=== PATIENT | male | born 1935 | race Hispanic/Latino ===

== ENCOUNTER 2021-07-16 11:39 | Inpatient (IN) | payer MEDICARE, OTHER ==
[2021-07-16] MEDS ORDERED: IPRATROPIUM 0.02% NEBU 2.5 ML IH ONE (11:51)
[2021-07-16] MEDS ORDERED: ALBUTEROL 2.5 MG/3 ML NEBU IH ONE (11:51)
--- NOTE | 2021-07-16 11:55 | Emergency Department Report ---
ED Shortness of Breath HPI - General Chief Complaint: Dyspnea/Respdistress Stated Complaint: MAY Time Seen by Provider: 07/16/21 11:50 Source: patient, EMS Mode of arrival: Stretcher Limitations: No Limitations - History of Present Illness Initial Comments: Patient presents by ambulance from the [facility] secondary shortness of breath and hypoxia. He presented there with cough and congestion shortness of breath. They administered inhalers. They administered steroids. Patient was transported here on a nonrebreather. Saturations were initially in the 60-70 range. On a nonrebreather per EMS, he has been in the high 80s. Patient states that he is felt short of breath. He denies coughing. He has no chest pain. He has no fevers or chills. It should be noted the patient is a poor historian. He denies having congestive heart failure but is on diuretics and does have a history of CHF. He denies having a cough but is coughing here. We are unaware whether he has a known COVID exposure. He has no idea whether he was vaccinated. - Related Data Allergies Allergy/AdvReac Type Severity Reaction Status Date / Time No Known Allergies Allergy Unverified 07/16/21 11:46 ED Review of Systems ROS: Stated complaint: MAY Other details as noted in HPI Comment: Unobtainable due to pts medical conditions (Patient is a poor his nereyda and cannot provide adequate review of systems.) ED Past Medical Hx - Past Medical History Previous Medical History?: Yes Hx Congestive Heart Failure: Yes Hx of Cancer: Yes (BLADDER) Hx COPD: Yes Additional medical history: AAA - Family History Family history: other (Denied by the patient) ED Physical Exam - General Limitations: Altered Mental Status (Patient is a poor historian but not altered), Other (Pulse ox was hypoxic at 88% on a nonrebreather.) General appearance: alert, in distress (Moderate) - Head Head exam: Present: atraumatic, normocephalic - Eye Eye exam: Present: normal appearance, EOMI. Absent: scleral icterus - ENT ENT exam: Present: mucous membranes dry, normal external ear exam - Neck Neck exam: Present: normal inspection. Absent: meningismus - Respiratory Respiratory exam: Present: respiratory distress (Moderate), wheezes (Bilateral), rhonchi (Bilateral), prolonged expiratory - Cardiovascular Cardiovascular Exam: Present: regular rate, normal rhythm - GI/Abdominal GI/Abdominal exam: Present: soft. Absent: distended, tenderness - Extremities Exam Extremities exam: Present: normal capillary refill. Absent: pedal edema, calf tenderness - Back Exam Back exam: Absent: CVA tenderness (R), CVA tenderness (L) - Neurological Exam Neurological exam: Present: alert, CN II-XII intact, reflexes normal - Psychiatric Psychiatric exam: Present: normal affect, normal mood - Skin Skin exam: Present: warm, dry ED Course Vital Signs 07/16/21 07/16/21 07/16/21 11:39 12:02 12:16 Temperature 97.5 F L Pulse Rate 72 105 H 104 H Respiratory 16 31 H Rate Blood Pressure 94/56 Blood Pressure 102/76 [Left] O2 Sat by Pulse 88 95 Oximetry 07/16/21 07/16/21 07/16/21 12:30 12:46 13:00 Temperature Pulse Rate 95 H 104 H 102 H Respiratory 29 H 23 28 H Rate Blood Pressure 99/57 100/52 93/55 Blood Pressure [Left] O2 Sat by Pulse 93 78 L 71 L Oximetry 07/16/21 07/16/21 07/16/21 13:16 13:30 13:46 Temperature Pulse Rate 84 92 H 92 H Respiratory 16 27 H 27 H Rate Blood Pressure 96/65 107/59 111/58 Blood Pressure [Left] O2 Sat by Pulse 97 97 87 Oximetry 07/16/21 14:00 Temperature Pulse Rate 97 H Respiratory 30 H Rate Blood Pressure 104/62 Blood Pressure [Left] O2 Sat by Pulse 80 L Oximetry - Reevaluation(s) Reevaluation #1: 07/16/21 11:35 EMS have been met upon arrival. IV and labs ordered. Old records reviewed. X- ray was also ordered. Reevaluation #2: 07/16/21 15:26 Work-up was finally complete. Patient will be admitted. Dr. Johnson agrees. ED Medical Decision Making - Lab Data Result diagrams: 07/16/21 13:37 07/16/21 13:37 Rhythm strip: Normal sinus rhythm without ectopy. Monitor observed in seconds. - Radiology Data Radiology results: report reviewed - Medical Decision Making Patient presents from a [place] facility secondary to hypoxia. He was hypoxic here on a nonrebreather. He has findings that are consistent with coronavirus infection. He does not appear to have a lobar pneumonia. Patient does not appear to have volume overload. He has no pedal edema. I do not believe this represents congestive heart failure. I suspect that this likely represents a coronavirus infection and he is hypoxic from this. He will be admitted for ongoing treatment and management. He is not stable for transfer. Critical Care Time: No Critical care attestation.: If time is entered above; I have spent that time in minutes in the direct care of this critically ill patient, excluding procedure time. ED Disposition Clinical Impression: Acute respiratory failure with hypoxia, Suspected COVID-19 virus infection, ETHEL (acute kidney injury) Disposition: ADMITTED INPATIENT Is pt being admited?: Yes Condition: Stable Referrals: PRIMARY CARE, [Primary Care Provider] - 3-5 Days
--- NOTE | 2021-07-16 12:20 | XRay Report ---
CHEST 1 VIEW 07/16/2021 11:54 AM INDICATION / CLINICAL INFORMATION: hypoxia. COMPARISON: None available. FINDINGS: Patient is rotated. SUPPORT DEVICES: None. HEART / MEDIASTINUM: No significant abnormality. LUNGS / PLEURA: There is airspace opacity in the lung bases left greater than right. No pneumothorax. ADDITIONAL FINDINGS: No significant additional findings. IMPRESSION: 1. There is bilateral basilar airspace disease left greater than right. This could represent atelecta sis or pneumonia. Signer Name: Ady Pina MD Signed: 07/16/2021 12:15 PM Workstation Name: [id number]
[2021-07-16 14:23] LABS: Hematocrit 37.5 % (35.5-45.6); Mean Corpuscular HGB Conc 32 % (32-34); Mean Corpuscular Volume 97 fl (84-94); Platelet Count 147 K/mm3 (140-440); Red Blood Count 3.86 M/mm3 (3.65-5.03); Red Cell Distribution Width 14.9 % (13.2-15.2)
[2021-07-16 14:45] LABS: Calcium 8.9 mg/dL (8.4-10.2)
[2021-07-16 14:48] LABS: C-Reactive Protein 23.2 mg/dL (0.00-1.30)
[2021-07-16 15:15] LABS: Chol/HDL Ratio 3.1 %
[2021-07-16 16:44] LABS: Basophils % (Manual) 0 % (0.0-1.8); Eosinophils % (Manual) 0 % (0.0-4.3); Platelet Estimate Consistent w Auto; RBC Morphology Normal; Total Cells Counted 100
--- NOTE | 2021-07-16 21:07 | History and Physical Report ---
History of Present Illness Date of examination: 07/16/21 Date of admission: 07/16/2021 Chief complaint: Shortness of breath for 3 days History of present illness: Patient presents by ambulance from the [facility] secondary shortness of breath and hypoxia. He presented there with cough and congestion shortness of breath. They administered inhalers. They administered steroids. Patient was transported here on a nonrebreather. Saturations were initially in the 60-70 range. On a nonrebreather per EMS, he has been in the high 80s. Patient states that he is felt short of breath. He denies coughing. He has no chest pain. He has no fevers or chills. It should be noted the patient is a poor historian. He denies having congestive heart failure but is on diuretics and does have a history of CHF. He denies having a cough but is coughing here. We are unaware whether he has a known COVID exposure. He has no idea whether he was vaccinated. - Related Data Allergies Allergy/AdvReac Type Severity Reaction Status Date / Time No Known Allergies Allergy Unverified 07/16/21 11:46 - Past Medical History Previous Medical History?: Yes --Congestive Heart Failure: Yes --Cancer: Yes (BLADDER) --COPD: Yes Additional medical history: AAA - Family History Family history: other (Denied by the patient) Review of Systems ROS: Stated complaint: MAY Other details as noted in HPI Comment: Unobtainable due to pts medical conditions (Patient is a poor historian and cannot provide adequate review of systems.) Medications and Allergies Allergies Allergy/AdvReac Type Severity Reaction Status Date / Time No Known Allergies Allergy Unverified 07/16/21 15:58 Home Medications Medication Instructions Recorded Confirmed Last Taken Type Lasix 20 mg PO Q48HR 07/16/21 07/16/21 Unknown History Exam - Constitutional Vitals: Temp Pulse Resp BP Pulse Ox 97.5 F L 108 H 21 90/51 92 07/16/21 11:39 07/16/21 16:30 07/16/21 16:30 07/16/21 16:30 07/16/21 16:30 General appearance: Present: no acute distress, well-nourished - EENT Eyes: Present: PERRL ENT: hearing intact, clear oral mucosa - Neck Neck: Present: supple, normal ROM - Respiratory Respiratory effort: normal Respiratory: bilateral: CTA, rales (Scattered), rhonchi - Cardiovascular Heart rate: 78 Rhythm: regular Heart Sounds: Present: S1 & S2. Absent: rub, click - Extremities Extremities: pulses symmetrical, No edema Peripheral Pulses: within normal limits - Abdominal General gastrointestinal: Present: soft, non-tender, non-distended, normal bowel sounds Male genitourinary: Present: normal - Integumentary Integumentary: Present: clear, warm, dry - Musculoskeletal Musculoskeletal: gait normal, strength equal bilaterally - Psychiatric Psychiatric: appropriate mood/affect, intact judgment & insight - Neurologic Neurologic: CNII-XII intact, moves all extremities HEART Score - HEART Score Troponin: Troponin T 0.038 ng/mL (0.00-0.029) H 07/16/21 13:37 Results - Labs CBC & Chem 7: 07/16/21 13:37 07/18/21 04:12 Labs: Laboratory Last Values WBC 8.9 K/mm3 (4.5-11.0) 07/16/21 13:37 RBC 3.86 M/mm3 (3.65-5.03) 07/16/21 13:37 Hgb 12.0 gm/dl (11.8-15.2) 07/16/21 13:37 Hct 37.5 % (35.5-45.6) 07/16/21 13:37 MCV 97 fl (84-94) H 07/16/21 13:37 MCH 31 pg (28-32) 07/16/21 13:37 MCHC 32 % (32-34) 07/16/21 13:37 RDW 14.9 % (13.2-15.2) 07/16/21 13:37 Plt Count 147 K/mm3 (140-440) 07/16/21 13:37 Add Manual Diff Complete 07/16/21 13:37 Total Counted 100 07/16/21 13:37 Seg Neutrophils % [employer] Consultant 07/16/21 13:37 Seg Neuts % (Manual) 93.0 % (40.0-70.0) H 07/16/21 13:37 Band Neutrophils % 0 % 07/16/21 13:37 Lymphocytes % (Manual) 5.0 % (13.4-35.0) L 07/16/21 13:37 Reactive Lymphs % (Man) 0 % 07/16/21 13:37 Monocytes % (Manual) 2.0 % (0.0-7.3) 07/16/21 13:37 Eosinophils % (Manual) 0 % (0.0-4.3) 07/16/21 13:37 Basophils % (Manual) 0 % (0.0-1.8) 07/16/21 13:37 Metamyelocytes % 0 % 07/16/21 13:37 Myelocytes % 0 % 07/16/21 13:37 Promyelocytes % 0 % 07/16/21 13:37 Blast Cells % 0 % 07/16/21 13:37 Nucleated RBC % Not Reportable 07/16/21 13:37 Seg Neutrophils # Man 8.3 K/mm3 (1.8-7.7) H 07/16/21 13:37 Band Neutrophils # 0.0 K/mm3 07/16/21 13:37 Lymphocytes # (Manual) 0.4 K/mm3 (1.2-5.4) L 07/16/21 13:37 Abs React Lymphs (Man) 0.0 K/mm3 07/16/21 13:37 Monocytes # (Manual) 0.2 K/mm3 (0.0-0.8) 07/16/21 13:37 Eosinophils # (Manual) 0.0 K/mm3 (0.0-0.4) 07/16/21 13:37 Basophils # (Manual) 0.0 K/mm3 (0.0-0.1) 07/16/21 13:37 Metamyelocytes # 0.0 K/mm3 07/16/21 13:37 Myelocytes # 0.0 K/mm3 07/16/21 13:37 Promyelocytes # 0.0 K/mm3 07/16/21 13:37 Blast Cells # 0.0 K/mm3 07/16/21 13:37 WBC Morphology Not Reportable 07/16/21 13:37 Hypersegmented Neuts Not Reportable 07/16/21 13:37 Hyposegmented Neuts Not Reportable 07/16/21 13:37 Hypogranular Neuts Not Reportable 07/16/21 13:37 Smudge Cells Not Reportable 07/16/21 13:37 Toxic Granulation Not Reportable 07/16/21 13:37 Toxic Vacuolation Not Reportable 07/16/21 13:37 Dohle Bodies Not Reportable 07/16/21 13:37 Pelger-Huet Anomaly Not Reportable 07/16/21 13:37 Eleni Rods Not Reportable 07/16/21 13:37 Platelet Estimate Consistent w auto 07/16/21 13:37 Clumped Platelets Not Reportable 07/16/21 13:37 Plt Clumps, EDTA Not Reportable 07/16/21 13:37 Large Platelets Not Reportable 07/16/21 13:37 Giant Platelets Not Reportable 07/16/21 13:37 Platelet Satelliting Not Reportable 07/16/21 13:37 Plt Morphology Comment Not Reportable 07/16/21 13:37 RBC Morphology Normal 07/16/21 13:37 Dimorphic RBCs Not Reportable 07/16/21 13:37 Polychromasia Not Reportable 07/16/21 13:37 Hypochromasia Not Reportable 07/16/21 13:37 Poikilocytosis Not Reportable 07/16/21 13:37 Anisocytosis Not Reportable 07/16/21 13:37 Microcytosis Not Reportable 07/16/21 13:37 Macrocytosis Not Reportable 07/16/21 13:37 Spherocytes Not Reportable 07/16/21 13:37 Pappenheimer Bodies Not Reportable 07/16/21 13:37 Sickle Cells Not Reportable 07/16/21 13:37 Target Cells Not Reportable 07/16/21 13:37 Tear Drop Cells Not Reportable 07/16/21 13:37 Ovalocytes Not Reportable 07/16/21 13:37 Helmet Cells Not Reportable 07/16/21 13:37 Chavarria-Calvin Bodies Not Reportable 07/16/21 13:37 [place] Rings Not Reportable 07/16/21 13:37 Clara Cells Not Reportable 07/16/21 13:37 Bite Cells Not Reportable 07/16/21 13:37 Crenated Cell Not Reportable 07/16/21 13:37 Elliptocytes Not Reportable 07/16/21 13:37 Acanthocytes (Spur) Not Reportable 07/16/21 13:37 Rouleaux Not Reportable 07/16/21 13:37 Hemoglobin C Crystals Not Reportable 07/16/21 13:37 Schistocytes Not Reportable 07/16/21 13:37 Malaria parasites Not Reportable 07/16/21 13:37 Deepak Bodies Not Reportable 07/16/21 13:37 Hem Pathologist Commnt No 07/16/21 13:37 D-Dimer 6795.60 ng/mlDDU (0-234) H 07/16/21 13:37 Sodium 142 mmol/L (137-145) 07/16/21 13:37 Potassium 4.1 mmol/L (3.6-5.0) 07/16/21 13:37 Chloride 102.5 mmol/L (98-107) 07/16/21 13:37 Carbon Dioxide 21 mmol/L (22-30) L 07/16/21 13:37 Anion Gap 23 mmol/L 07/16/21 13:37 BUN 46 mg/dL (9-20) H 07/16/21 13:37 Creatinine 1.8 mg/dL (0.8-1.3) H 07/16/21 13:37 Estimated GFR 36 ml/min 07/16/21 13:37 BUN/Creatinine Ratio 26 % 07/16/21 13:37 Glucose 194 mg/dL (75-100) H 07/16/21 13:37 Glucose 197 mg/dL (75-100) H 07/16/21 13:37 Calcium 8.9 mg/dL (8.4-10.2) 07/16/21 13:37 Ferritin 512.3 ng/mL (30.0-300.0) H 07/16/21 13:37 Lactate Dehydrogenase 310 units/L (91-180) H 07/16/21 13:37 Troponin T 0.038 ng/mL (0.00-0.029) H 07/16/21 13:37 C-Reactive Protein 23.20 mg/dL (0.00-1.30) H 07/16/21 13:37 Triglycerides 80 mg/dL (2-149) 07/16/21 13:37 Cholesterol 90 mg/dL (50-199) 07/16/21 13:37 LDL Cholesterol Direct 49 mg/dL (50-130) L 07/16/21 13:37 HDL Cholesterol 29 mg/dL (40-59) L 07/16/21 13:37 Cholesterol/HDL Ratio 3.10 % 07/16/21 13:37 Procalcitonin 0.95 ng/mL (<0.15) 07/16/21 13:37 - Imaging and Cardiology Chest x-ray: report reviewed Imaging and Cardiology: Chest x-ray Bilateral basilar airspace disease left greater than right. This could represent atelectasis or pneumonia Assessment and Plan Advance Directives: Yes - Patient Problems (1) Acute respiratory failure with hypoxia Current Visit: Yes Status: Acute Plan to address problem: Patient is in acute respiratory failure with hypoxia Patient on 100% nonrebreather Bilateral pneumonia COVID to be ruled out (2) Bilateral pneumonia Current Visit: Yes Status: Acute Plan to address problem: IV antibiotics-Zithromax and IV Rocephin for now Check procalcitonin (3) Suspected COVID-19 virus infection Current Visit: Yes Status: Acute Plan to address problem: Rule out coronavirus PCR (4) ETHEL (acute kidney injury) Current Visit: Yes Status: Acute Plan to address problem: Gentle hydration for now (5) CHF (congestive heart failure) Current Visit: Yes Status: Chronic Qualifiers: Heart failure type: combined systolic and diastolic Heart failure chronicity: unspecified Qualified Code(s): I50.40 - Unspecified combined systolic (congestive) and diastolic (congestive) heart failure Plan to address problem: Echocardiogram for ejection fraction Lasix as needed (6) COPD (chronic obstructive pulmonary disease) Current Visit: Yes Status: Chronic Qualifiers: Emphysema type: unspecified Plan to address problem: Combivent MDI 2 puffs twice daily (7) AAA (abdominal aortic aneurysm) Current Visit: Yes Status: Chronic Qualifiers: Presence of rupture: without rupture Qualified Code(s): I71.4 - Abdominal aortic aneurysm, without rupture Plan to address problem: Stable (8) DVT prophylaxis Current Visit: Yes Status: Acute Plan to address problem: On anticoagulation GI prophylaxis
[2021-07-16] MEDS ORDERED: ACETAMINOPHEN 325 MG TAB PO PRN (21:08)
[2021-07-16] MEDS ORDERED: ONDANSETRON 4 MG/2 ML INJ IV PRN (21:08)
[2021-07-16] MEDS ORDERED: HYDROmorphone 1 MG/1 ML INJ IV PRN (21:10)
[2021-07-16] MEDS ORDERED: oxyCODONE /ACETAMINOPHEN 5-325MG TAB PO PRN (21:10)
[2021-07-16] MEDS ORDERED: METOCLOPRAMIDE 10 MG/2 ML INJ IV PRN (21:10)
[2021-07-16] MEDS ORDERED: SODIUM CHLORIDE 0.9% 1000 ML 1,000 ML IV SCH (21:15)
[2021-07-16] MEDS: cefTRIAXone/NS 2 GM/100 ML 2 GM/100 ML BAG IV SCH (23:02)
[2021-07-16] MEDS: AZITHROMYCIN/NS 500 MG/250 ML 500 MG/250 ML BAG IV SCH (23:02)
[2021-07-16] MEDS: dexAMETHasone 4 MG/ML VIAL IV SCH (23:03)
[2021-07-16] MEDS: HEPARIN 5,000 UNIT/1 ML VIAL SUB-Q SCH (23:28)
[2021-07-17 05:35] LABS: Albumin 2.8 g/dL (3.9-5); Calcium 8.2 mg/dL (8.4-10.2)
[2021-07-17] MEDS: HEPARIN 5,000 UNIT/1 ML VIAL SUB-Q SCH ×2 (10:54→22:32)
[2021-07-17] MEDS: cefTRIAXone/NS 2 GM/100 ML 2 GM/100 ML BAG IV SCH (22:31)
[2021-07-17] MEDS: dexAMETHasone 4 MG/ML VIAL IV SCH (22:32)
[2021-07-17] MEDS: AZITHROMYCIN/NS 500 MG/250 ML 500 MG/250 ML BAG IV SCH (22:33)
--- NOTE | 2021-07-17 22:39 | Progress Note ---
Assessment and Plan - Patient Problems (1) Acute respiratory failure with hypoxia Current Visit: Yes Status: Acute Plan to address problem: Patient is in acute respiratory failure with hypoxia Patient on 100% nonrebreather Bilateral pneumonia COVID to be ruled out (2) ETHEL (acute kidney injury) Current Visit: Yes Status: Acute Plan to address problem: Gentle hydration for now (3) Suspected COVID-19 virus infection Current Visit: Yes Status: Acute Plan to address problem: Rule out coronavirus PCR (4) Bilateral pneumonia Current Visit: Yes Status: Acute Plan to address problem: IV antibiotics-Zithromax and IV Rocephin for now Check procalcitonin (5) AAA (abdominal aortic aneurysm) Current Visit: Yes Status: Chronic Qualifiers: Presence of rupture: without rupture Qualified Code(s): I71.4 - Abdominal aortic aneurysm, without rupture Plan to address problem: Stable (6) CHF (congestive heart failure) Current Visit: Yes Status: Chronic Qualifiers: Heart failure type: combined systolic and diastolic Heart failure chronicity: unspecified Qualified Code(s): I50.40 - Unspecified combined systolic (congestive) and diastolic (congestive) heart failure Plan to address problem: Echocardiogram for ejection fraction Lasix as needed (7) COPD (chronic obstructive pulmonary disease) Current Visit: Yes Status: Chronic Qualifiers: Emphysema type: unspecified Plan to address problem: Combivent MDI 2 puffs twice daily (8) DVT prophylaxis Current Visit: Yes Status: Acute Plan to address problem: On anticoagulation GI prophylaxis Subjective Date of service: 07/17/21 Principal diagnosis: COVID-pneumonia Interval history: Patient presents by ambulance from the [facility] [place] secondary shortness of breath and hypoxia. He presented there with cough and congestion shortness of breath. They administered inhalers. They administered steroids. Patient was transported here on a nonrebreather. Saturations were initially in the 60-70 range. On a nonrebreather per EMS, he has been in the high 80s. Patient states that he is felt short of breath. He denies coughing. He has no chest pain. He has no fevers or chills. It should be noted the patient is a poor historian. He denies having congestive heart failure but is on diuretics and does have a history of CHF. He denies having a cough but is coughing here. We are unaware whether he has a known COVID exposure. He has no idea whether he was vaccinated. 07/17/2021 Patient on 50% Ventimask COVID-positive Objective - Constitutional Vitals: Vital Signs - 12hr 07/17/21 07/17/21 07/17/21 10:40 10:50 11:00 Temperature Pulse Rate 62 62 66 Respiratory 22 23 25 H Rate Blood Pressure 96/53 96/53 96/53 O2 Sat by Pulse 99 98 97 Oximetry 07/17/21 07/17/21 07/17/21 11:10 11:20 11:30 Temperature Pulse Rate 65 62 62 Respiratory 20 24 22 Rate Blood Pressure 96/53 101/52 101/52 O2 Sat by Pulse 98 98 98 Oximetry 07/17/21 07/17/21 07/17/21 11:40 14:57 15:00 Temperature Pulse Rate 62 Respiratory 23 Rate Blood Pressure 101/52 O2 Sat by Pulse 99 98 98 Oximetry 07/17/21 16:48 Temperature 97.6 F Pulse Rate 70 Respiratory 21 Rate Blood Pressure 111/60 O2 Sat by Pulse 92 Oximetry General appearance: Present: no acute distress, well-nourished - EENT Eyes: PERRL, EOM intact ENT: hearing intact, clear oral mucosa Ears: bilateral: normal - Neck Neck: supple, normal ROM - Respiratory Respiratory effort: normal Respiratory: bilateral: CTA - Breasts Breasts: normal - Cardiovascular Heart rate: 78 Rhythm: regular Heart Sounds: Present: S1 & S2. Absent: gallop, rub Extremities: pulses intact, No edema, normal color, Full ROM - Gastrointestinal General gastrointestinal: Present: soft, non-tender, non-distended, normal bowel sounds - Genitourinary Male genitourinary: normal - Integumentary Integumentary: clear, warm, dry - Musculoskeletal Musculoskeletal: 1, strength equal bilaterally - Neurologic Neurologic: moves all extremities - Psychiatric Psychiatric: memory intact, appropriate mood/affect, intact judgment & insight - Labs CBC & Chem 7: 07/16/21 13:37 07/18/21 04:12 Labs: Abnormal lab results 07/17/21 07/17/21 Range/Units 04:50 Unknown Chloride 107.1 H (98-107) mmol/L BUN 54 H (9-20) mg/dL Creatinine 1.7 H (0.8-1.3) mg/dL Glucose 232 H (75-100) mg/dL Calcium 8.2 L (8.4-10.2) mg/dL Albumin 2.8 L (3.9-5) g/dL Coronavirus (PCR) Positive A (Negative) HEART Score - HEART Score Troponin: Troponin T 0.038 ng/mL (0.00-0.029) H 07/16/21 13:37
[2021-07-18 05:29] LABS: Calcium 8.7 mg/dL (8.4-10.2)
[2021-07-18] MEDS: HEPARIN 5,000 UNIT/1 ML VIAL SUB-Q SCH ×2 (11:22→22:01)
[2021-07-18] MEDS: cefTRIAXone/NS 2 GM/100 ML 2 GM/100 ML BAG IV SCH (22:10)
[2021-07-18] MEDS: dexAMETHasone 4 MG/ML VIAL IV SCH (22:10)
[2021-07-18] MEDS: AZITHROMYCIN/NS 500 MG/250 ML 500 MG/250 ML BAG IV SCH (23:06)
--- NOTE | 2021-07-19 08:58 | Progress Note ---
Assessment and Plan - Patient Problems (1) Acute respiratory failure with hypoxia Current Visit: Yes Status: Acute Plan to address problem: Patient is in acute respiratory failure with hypoxia Patient on 100% nonrebreather Bilateral pneumonia COVID to be ruled out (2) SIRS (systemic inflammatory response syndrome) Current Visit: Yes Status: Acute Plan to address problem: Clinical picture consistent with Sirs Systemic inflammatory response syndrome D-dimer is 6795, ferritin is 5 and 12, LDH is 310, CRP is 23.20 Lovenox initiated at 81 mg subcu every 12 (3) ETHEL (acute kidney injury) Current Visit: Yes Status: Acute Plan to address problem: Gentle hydration for now (4) Suspected COVID-19 virus infection Current Visit: Yes Status: Acute Plan to address problem: Rule out coronavirus PCR (5) Bilateral pneumonia Current Visit: Yes Status: Acute Plan to address problem: IV antibiotics-Zithromax and IV Rocephin for now Check procalcitonin (6) AAA (abdominal aortic aneurysm) Current Visit: Yes Status: Chronic Qualifiers: Presence of rupture: without rupture Qualified Code(s): I71.4 - Abdominal aortic aneurysm, without rupture Plan to address problem: Stable (7) CHF (congestive heart failure) Current Visit: Yes Status: Chronic Qualifiers: Heart failure type: combined systolic and diastolic Heart failure chronicity: unspecified Qualified Code(s): I50.40 - Unspecified combined systolic (congestive) and diastolic (congestive) heart failure Plan to address problem: Echocardiogram for ejection fraction Lasix as needed (8) COPD (chronic obstructive pulmonary disease) Current Visit: Yes Status: Chronic Qualifiers: Emphysema type: unspecified Plan to address problem: Combivent MDI 2 puffs twice daily (9) DVT prophylaxis Current Visit: Yes Status: Acute Plan to address problem: On anticoagulation GI prophylaxis Subjective Date of service: 07/19/21 Interval history: Patient presents by ambulance from the [facility] secondary shortness of breath and hypoxia. He presented there with cough and congestion shortness of breath. They administered inhalers. They administered steroids. Patient was transported here on a nonrebreather. Saturations were initially in the 60-70 range. On a nonrebreather per EMS, he has been in the high 80s. Patient states that he is felt short of breath. He denies coughing. He has no chest pain. He has no fevers or chills. It should be noted the patient is a poor historian. He denies having congestive heart failure but is on diuretics and does have a history of CHF. He denies having a cough but is coughing here. We are unaware whether he has a known COVID exposure. He has no idea whether he was vaccinated. 07/17/2021 Patient on 50% Ventimask COVID-positive 07/18/2021 Patient on 50% Ventimask Not a candidate for remdesivir We will consult ID Objective - Constitutional Vitals: Vital Signs - 12hr 07/18/21 07/19/21 21:51 04:47 Temperature 97.7 F Pulse Rate 101 H Respiratory 16 Rate Blood Pressure 129/69 O2 Sat by Pulse 92 88 Oximetry General appearance: Present: no acute distress, well-nourished - EENT Eyes: PERRL, EOM intact ENT: hearing intact, clear oral mucosa Ears: bilateral: normal - Neck Neck: supple, normal ROM - Respiratory Respiratory effort: normal Respiratory: bilateral: CTA - Breasts Breasts: normal - Cardiovascular Rhythm: regular Heart Sounds: Present: S1 & S2. Absent: gallop, rub Extremities: pulses intact, No edema, normal color, Full ROM - Gastrointestinal General gastrointestinal: Present: soft, non-tender, non-distended, normal bowel sounds - Genitourinary Male genitourinary: normal - Integumentary Integumentary: clear, warm, dry - Musculoskeletal Musculoskeletal: 1, strength equal bilaterally - Neurologic Neurologic: moves all extremities - Psychiatric Psychiatric: memory intact, appropriate mood/affect, intact judgment & insight - Labs CBC & Chem 7: 07/16/21 13:37 07/18/21 04:12 HEART Score - HEART Score Troponin: Troponin T 0.038 ng/mL (0.00-0.029) H 07/16/21 13:37
--- NOTE | 2021-07-19 08:58 | Progress Note ---
Assessment and Plan - Patient Problems (1) Acute respiratory failure with hypoxia Current Visit: Yes Status: Acute Plan to address problem: Patient is in acute respiratory failure with hypoxia Patient on 100% nonrebreather Bilateral pneumonia COVID to be ruled out (2) ETHEL (acute kidney injury) Current Visit: Yes Status: Acute Plan to address problem: Gentle hydration for now (3) Suspected COVID-19 virus infection Current Visit: Yes Status: Acute Plan to address problem: Rule out coronavirus PCR (4) Bilateral pneumonia Current Visit: Yes Status: Acute Plan to address problem: IV antibiotics-Zithromax and IV Rocephin for now Check procalcitonin (5) AAA (abdominal aortic aneurysm) Current Visit: Yes Status: Chronic Qualifiers: Presence of rupture: without rupture Qualified Code(s): I71.4 - Abdominal aortic aneurysm, without rupture Plan to address problem: Stable (6) CHF (congestive heart failure) Current Visit: Yes Status: Chronic Qualifiers: Heart failure type: combined systolic and diastolic Heart failure chronicity: unspecified Qualified Code(s): I50.40 - Unspecified combined systolic (congestive) and diastolic (congestive) heart failure Plan to address problem: Echocardiogram for ejection fraction Lasix as needed (7) COPD (chronic obstructive pulmonary disease) Current Visit: Yes Status: Chronic Qualifiers: Emphysema type: unspecified Plan to address problem: Combivent MDI 2 puffs twice daily (8) DVT prophylaxis Current Visit: Yes Status: Acute Plan to address problem: On anticoagulation GI prophylaxis Subjective Date of service: 07/18/21 Principal diagnosis: COVID pneumonia Interval history: Patient presents by ambulance from the [facility] secondary shortness of breath and hypoxia. He presented there with cough and congestion shortness of breath. They administered inhalers. They administered steroids. Patient was transported here on a nonrebreather. Saturations were initially in the 60-70 range. On a nonrebreather per EMS, he has been in the high 80s. Patient states that he is felt short of breath. He denies coughing. He has no chest pain. He has no fevers or chills. It should be noted the patient is a poor historian. He denies having congestive heart failure but is on diuretics and does have a history of CHF. He denies having a cough but is coughing here. We are unaware whether he has a known COVID exposure. He has no idea whether he was vaccinated. 07/17/2021 Patient on 50% Ventimask COVID-positive 07/18/2021 Patient on 50% Ventimask Not a candidate for remdesivir We will consult ID Objective - Constitutional Vitals: Vital Signs - 12hr 07/18/21 07/19/21 21:51 04:47 Temperature 97.7 F Pulse Rate 101 H Respiratory 16 Rate Blood Pressure 129/69 O2 Sat by Pulse 92 88 Oximetry General appearance: Present: no acute distress, well-nourished - EENT Eyes: PERRL, EOM intact ENT: hearing intact, clear oral mucosa Ears: bilateral: normal - Neck Neck: supple, normal ROM - Respiratory Respiratory effort: normal Respiratory: bilateral: CTA, rales (Scattered) - Breasts Breasts: normal - Cardiovascular Rhythm: regular Heart Sounds: Present: S1 & S2. Absent: gallop, rub Extremities: pulses intact, No edema, normal color, Full ROM - Gastrointestinal General gastrointestinal: Present: soft, non-tender, non-distended, normal bowel sounds - Genitourinary Male genitourinary: normal - Integumentary Integumentary: clear, warm, dry - Musculoskeletal Musculoskeletal: 1, strength equal bilaterally - Neurologic Neurologic: moves all extremities - Psychiatric Psychiatric: memory intact, appropriate mood/affect, intact judgment & insight - Labs CBC & Chem 7: 07/16/21 13:37 07/18/21 04:12 HEART Score - HEART Score Troponin: Troponin T 0.038 ng/mL (0.00-0.029) H 07/16/21 13:37
[2021-07-19] MEDS ORDERED: SODIUM CHLORIDE 0.9% 1000 ML 1,000 ML IV SCH (10:00)
[2021-07-19] MEDS: HEPARIN 5,000 UNIT/1 ML VIAL SUB-Q SCH ×2 (10:31→22:29)
[2021-07-19] MEDS ORDERED: REMDESIVIR 200 MG in SODIUM CHLORIDE 0.9% 250ML 250 ML IV ONE (13:39)
--- NOTE | 2021-07-19 13:45 | Consultation ---
History of Present Illness - Reason for Consult Consult date: 07/19/21 COVID-19 Requesting physician: AHMET HURD - History of Present Illness The patient is a 86-year-old male with CHF, COPD, history of AAA was admitted from [facility] with hypoxia. He was given steroids there, transferred here, tested positive for COVID-19. Initially, labs showed normal WBC, D-dimer 6795, creatinine was elevated at 1.8 which has gradually improved. Patient tested positive for COVID-19, infectious diseases was consulted. CRP 23.2, procalcitonin 0.95. Initially requiring Venturi mask, now requiring nasal cannula. Review of Systems: reviewed in the chart, unable to obtain, minimize risk of transmission Medications and Allergies Allergies Allergy/AdvReac Type Severity Reaction Status Date / Time No Known Allergies Allergy Unverified 07/16/21 15:58 Home Medications Medication Instructions Recorded Confirmed Last Taken Type Lasix 20 mg PO Q48HR 07/16/21 07/16/21 Unknown History Active Meds: Active Medications Acetaminophen (Acetaminophen 325 Mg Tab) 650 mg PO Q4H PRN PRN Reason: Pain MILD(1-3)/Fever >100.5/[place] Last Admin: 07/16/21 23:03 Dose: 650 mg Dexamethasone (Dexamethasone 4 Mg/Ml Vial) 8 mg IV Q24H [facility] Stop: 07/25/21 22:01 Last Admin: 07/18/21 22:10 Dose: 8 mg Heparin Sodium (Porcine) (Heparin 5,000 Unit/1 Ml Vial) 5,000 unit SUB-Q Q12HR [facility] Last Admin: 07/19/21 10:31 Dose: 5,000 unit Hydromorphone HCl (Hydromorphone 1 Mg/1 Ml Inj) 0.5 mg IV Q3H PRN PRN Reason: Pain , Severe (7-10) Azithromycin (Zithromax/Ns) 500 mg in 250 mls @ 250 mls/hr IV Q24H [facility] Stop: 07/20/21 22:59 Last Admin: 07/18/21 23:06 Dose: 250 mls/hr Ceftriaxone Sodium (Rocephin/Ns 2 Gm/100 Ml) 2 gm in 100 mls @ 200 mls/hr IV Q24H [facility]; Protocol Stop: 07/20/21 22:29 Last Admin: 07/18/21 22:10 Dose: 200 mls/hr Sodium Chloride (Nacl 0.9% 1000 Ml) 1,000 mls @ 75 mls/hr IV DIRECT [facility] Stop: 07/19/21 23:59 REMDESIVIR 200 mg/ Sodium (Chloride) 250 mls @ 500 mls/hr IV ONCE ONE Stop: 07/19/21 14:08 REMDESIVIR 100 mg/ Sodium (Chloride) 250 mls @ 500 mls/hr IV Q24HR@2100 [facility] Stop: 07/23/21 21:29 Metoclopramide HCl (Metoclopramide 10 Mg/2 Ml Inj) 10 mg IV Q6H PRN PRN Reason: Nausea And Vomiting Ondansetron HCl (Ondansetron 4 Mg/2 Ml Inj) 4 mg IV Q8H PRN PRN Reason: Nausea And Vomiting Oxycodone/Acetaminophen (Oxycodone /Acetaminophen 5-325mg Tab) 1 tab PO Q6H PRN PRN Reason: Pain, Moderate (4-6) Sodium Chloride (Sodium Chloride 0.9% 10 Ml Flush Syringe) 10 ml IV BID [facility] Last Admin: 07/19/21 10:31 Dose: 10 ml Sodium Chloride (Sodium Chloride 0.9% 10 Ml Flush Syringe) 10 ml IV PRN PRN PRN Reason: LINE FLUSH Sodium Chloride (Sodium Chloride 0.9% 50 Ml Ivpb) 50 ml IV Q24HR@2100 [facility] Stop: 07/23/21 21:01 Tiotropium [place] (Tiotropium 18 Mcg Cap Inhalation) 1 puff IH Q24HRT [facility] Physical Examination - Physical Exam Narrative exam: Physical Exam (reviewed in chart to minimize risk of transmission) Constitutional: deferred Head, Ears, Nose: deferred Eyes: deferred Neck: deferred Oral: deferred Cardiovascular: deferred Respiratory: deferred GI: deferred Musculoskeletal: deferred Skin: deferred Hem/Lymphatic: deferred Psych: deferred Neurological: deferred - Constitutional Vitals: Vital Signs Temp Pulse Resp BP Pulse Ox 98.0 F 60 24 129/76 76 L 07/19/21 10:38 07/19/21 10:38 07/19/21 10:38 07/19/21 10:38 07/19/21 10:38 Temperature -Last 24 Hours Temperature 98.0 F Temperature 97.7 F Temperature 98.2 F Temperature 98.6 F Results - Labs CBC & Chem 7: 07/16/21 13:37 07/18/21 04:12 - Imaging and Cardiology Chest x-ray: report reviewed, image reviewed (b/l airspace disease) Assessment and Plan Cultures: SARS CoV2 PCR: Positive A/P: 86-year-old male with CHF, COPD, history of AAA was admitted from [facility] with hypoxia: #Bilateral pneumonia: Secondary to COVID-19 #Acute hypoxic respiratory failure: Requiring nasal cannula #ETHEL: Creatinine improving #COPD Recs: -Continue IV/PO Dexamethasone x 10 days -Given improvement in GFR, started IV remdesivir x 5 days -prophylactic anticoagulation based on d-dimer per hospital protocol -Elevated procalcitonin, complete 5 days of empiric antibiotics -trend ferritin, d-dimer, CRP every 2-3 days Shannon Valdez MD, FACP, [facility] O: [phone] F: [phone]
[2021-07-19] MEDS: SODIUM CHLORIDE 0.9% 50 ML IVPB IV SCH (14:32)
[2021-07-19 14:34] LABS: Albumin 3.2 g/dL (3.9-5); Calcium 9.5 mg/dL (8.4-10.2)
[2021-07-19] MEDS: dexAMETHasone 4 MG/ML VIAL IV SCH (22:29)
[2021-07-19] MEDS: cefTRIAXone/NS 2 GM/100 ML 2 GM/100 ML BAG IV SCH (22:30)
[2021-07-19] MEDS: AZITHROMYCIN/NS 500 MG/250 ML 500 MG/250 ML BAG IV SCH (23:59)
[2021-07-20 05:41] LABS: Albumin 2.8 g/dL (3.9-5); Calcium 9.1 mg/dL (8.4-10.2)
[2021-07-20] MEDS: TIOTROPIUM 18 MCG CAP INHALATION IH SCH (09:05)
--- NOTE | 2021-07-20 09:15 | Electrocardiograph Report ---
[facility] Test Date: 2021-07-16 Test Time: 12:19:17 Pat Name: RADHA JANSEN Department: Room: A373 Gender: M Extermination Supervisor: [id number] : 1935 Requested By: AHMET HURD Order Number: [id number] Reading MD: Emil Montano Measurements Intervals [place] Rate: 92 P: 70 IA: 143 QRS: 13 QRSD: 96 T: 54 QT: 366 QTc: 453 Interpretive Statements Sinus rhythm Atrial premature complexes Anteroseptal infarct, age indeterminate No previous ECG available for comparison Electronically Signed On 07-20-2021 9:14:55 EST by Emil Montano
[2021-07-20] MEDS: HEPARIN 5,000 UNIT/1 ML VIAL SUB-Q SCH ×2 (09:34→21:21)
--- NOTE | 2021-07-20 15:33 | Progress Note ---
Assessment and Plan Cultures: SARS CoV2 PCR: Positive A/P: 86-year-old male with CHF, COPD, history of AAA was admitted from [facility] with hypoxia: #Bilateral pneumonia: Secondary to COVID-19. Elevated procalcitonin and inf lammatory markers. #Acute hypoxic respiratory failure: Requiring nasal cannula #ETHEL: Creatinine improving #COPD Recs: -Continue IV/PO Dexamethasone x 10 days -continue IV remdesivir x 5 days -prophylactic anticoagulation based on d-dimer per hospital protocol -complete 5 days of empiric antibiotics -trend ferritin, d-dimer, CRP every 2-3 days Shannon Valdez MD, FACP, [facility] ([facility] O: [phone] F: [phone] Subjective Date of service: 07/20/21 Principal diagnosis: COVID pneumonia Interval history: No fever. Remains on oxygen by [place]. Objective - Exam Narrative Exam: Physical Exam (reviewed in chart to minimize risk of transmission) Constitutional: deferred Head, Ears, Nose: deferred Eyes: deferred Neck: deferred Oral: deferred Cardiovascular: deferred Respiratory: deferred GI: deferred Musculoskeletal: deferred Skin: deferred Hem/Lymphatic: deferred Psych: deferred Neurological: deferred - Constitutional Vitals: Vital Signs Temp Pulse Resp BP Pulse Ox 98.0 F 104 H 18 134/77 94 07/20/21 05:18 07/20/21 05:18 07/20/21 05:18 07/20/21 05:18 07/20/21 13:05 Temperature -Last 24 Hours Temperature 98.0 F Temperature 98.0 F Temperature 97.9 F - Labs CBC & Chem 7: 07/16/21 13:37 07/20/21 04:26 Labs: Abnormal lab results 07/20/21 Range/Units 04:26 Sodium 155 H (137-145) mmol/L Chloride 118.2 H (98-107) mmol/L BUN 66 H (9-20) mg/dL Glucose 197 H (75-100) mg/dL Albumin 2.8 L (3.9-5) g/dL
--- NOTE | 2021-07-20 18:32 | Discharge Summary ---
Providers - Providers Date of Admission: 07/16/21 13:00 Attending physician: AHMET HURD 07/17/21 15:10 Physical Therapy Evaluation and Treat [CONS] Routine Comment: Reason For Exam: generalized weakness 07/17/21 15:11 Occupational Therapy Evaluate and Treat [CONS] Routine Comment: Reason For Exam: weakness Speech Therapy Evaluation and Treat [CONS] Routine Reason For Exam: swallowing 07/19/21 09:33 Consult to Physician [CONS] Routine Comment: Consulting Provider: MITCHELL WISE Physician Instructions: Reason For Exam: COVID pneumonia 50% [facility] Primary care physician: ROUTE CD[employer] DRIVER Hospitalization Condition: Stable Disposition: 30 STILL A PATIENT - Discharge Diagnoses (1) Acute respiratory failure with hypoxia Status: Acute (2) SIRS (systemic inflammatory response syndrome) Status: Acute (3) ETHEL (acute kidney injury) Status: Acute (4) Suspected COVID-19 virus infection Status: Acute (5) Bilateral pneumonia Status: Acute (6) AAA (abdominal aortic aneurysm) Status: Chronic Qualifiers: Presence of rupture: without rupture Qualified Code(s): I71.4 - Abdominal aortic aneurysm, without rupture (7) CHF (congestive heart failure) Status: Chronic Qualifiers: Heart failure type: combined systolic and diastolic Heart failure chronicity: unspecified Qualified Code(s): I50.40 - Unspecified combined systolic (congestive) and diastolic (congestive) heart failure (8) COPD (chronic obstructive pulmonary disease) Status: Chronic Qualifiers: Emphysema type: unspecified (9) DVT prophylaxis Status: Acute Exam - Constitutional Vitals: Temp Pulse Resp BP Pulse Ox 98.0 F 104 H 18 134/77 94 07/20/21 05:18 07/20/21 05:18 07/20/21 05:18 07/20/21 05:18 07/20/21 13:05 Plan Follow up with: PRIMARY MD EWA [Primary Care Provider] - 3-5 Days
--- NOTE | 2021-07-20 18:36 | Event Note ---
Date: 07/20/21 Had extensive discussion with the daughter Jayda Blackburn. Her number is [phone]. Daughter does not want any interventions. Daughter does not want PEG tube. Daughter was convinced about D5W for bringing the sodium down. Patient to be transferred to assisted facility which belongs to [facility] as soon as possible concessions manager and clinical social work therapist on board
[2021-07-20] MEDS: cefTRIAXone/NS 2 GM/100 ML 2 GM/100 ML BAG IV SCH (21:22)
[2021-07-20] MEDS: DEXTROSE 5% IN WATER 1,000 ML IV SCH (21:22)
[2021-07-20] MEDS: dexAMETHasone 4 MG/ML VIAL IV SCH (22:45)
[2021-07-20] MEDS: REMDESIVIR 100 MG in SODIUM CHLORIDE 0.9% 250ML 250 ML IV SCH (22:53)
[2021-07-21] MEDS: AZITHROMYCIN/NS 500 MG/250 ML 500 MG/250 ML BAG IV SCH (00:50)
[2021-07-21] MEDS: SODIUM CHLORIDE 0.9% 50 ML IVPB IV SCH (03:47)
--- NOTE | 2021-07-21 07:10 | Progress Note ---
Assessment and Plan - Patient Problems (1) Hypernatremia Current Visit: Yes Status: Acute Plan to address problem: D5W for now (2) Acute respiratory failure with hypoxia Current Visit: Yes Status: Acute Plan to address problem: Patient is in acute respiratory failure with hypoxia Patient on 100% nonrebreather Bilateral pneumonia COVID to be ruled out (3) SIRS (systemic inflammatory response syndrome) Current Visit: Yes Status: Acute Plan to address problem: Clinical picture consistent with Sirs Systemic inflammatory response syndrome D-dimer is 6795, ferritin is 5 and 12, LDH is 310, CRP is 23.20 Lovenox initiated at 81 mg subcu every 12 (4) ETHEL (acute kidney injury) Current Visit: Yes Status: Acute Plan to address problem: Gentle hydration for now (5) Suspected COVID-19 virus infection Current Visit: Yes Status: Acute Plan to address problem: Rule out coronavirus PCR (6) Bilateral pneumonia Current Visit: Yes Status: Acute Plan to address problem: IV antibiotics-Zithromax and IV Rocephin for now Check procalcitonin (7) AAA (abdominal aortic aneurysm) Current Visit: Yes Status: Chronic Qualifiers: Presence of rupture: without rupture Qualified Code(s): I71.4 - Abdominal aortic aneurysm, without rupture Plan to address problem: Stable (8) CHF (congestive heart failure) Current Visit: Yes Status: Chronic Qualifiers: Heart failure type: combined systolic and diastolic Heart failure c hronicity: unspecified Qualified Code(s): I50.40 - Unspecified combined systolic (congestive) and diastolic (congestive) heart failure Plan to address problem: Echocardiogram for ejection fraction Lasix as needed (9) COPD (chronic obstructive pulmonary disease) Current Visit: Yes Status: Chronic Qualifiers: Emphysema type: unspecified Plan to address problem: Combivent MDI 2 puffs twice daily (10) DVT prophylaxis Current Visit: Yes Status: Acute Plan to address problem: On anticoagulation GI prophylaxis (11) Discharge planning issues Current Visit: Yes Status: Acute Plan to address problem: Patient will be discharged to SNF Per daughter-patient is AN D, no PEG,, no medical treatment and keep him comfortable See event note Subjective Date of service: 07/20/21 Principal diagnosis: COVID pneumonia Interval history: Patient presents by ambulance from the [facility] secondary shortness of breath and hypoxia. He presented there with cough and congestion shortness of breath. They administered inhalers. They administered steroids. Patient was transported here on a nonrebreather. Saturations were initially in the 60-70 range. On a nonrebreather per EMS, he has been in the high 80s. Patient states that he is felt short of breath. He denies coughing. He has no chest pain. He has no fevers or chills. It should be noted the patient is a poor historian. He denies having congestive heart failure but is on diuretics and does have a history of CHF. He denies having a cough but is coughing here. We are unaware whether he has a known COVID exposure. He has no idea whether he was vaccinated. 07/17/2021 Patient on 50% Ventimask COVID-positive 07/18/2021 Patient on 50% Ventimask Not a candidate for remdesivir We will consult ID 07/19/2021 Patient on 2 L nasal cannula oxygen Daughter signed DNR Daughter does not want any PEG tube Daughter wants patient to be transferred to SNF Patient has Oropeza advantage 07/20/2021 Daughter does not want PEG Patient is DNR Sodium is high Patient is on D5W Transfer to [facility] even though the sodium is high as per daughter Objective - Constitutional Vitals: Vital Signs - 12hr 07/20/21 07/21/21 21:43 00:48 Temperature 98.2 F Pulse Rate 101 H Respiratory 16 Rate Blood Pressure 138/82 O2 Sat by Pulse 92 93 Oximetry General appearance: Present: no acute distress, well-nourished - EENT Eyes: PERRL, EOM intact ENT: hearing intact, clear oral mucosa Ears: bilateral: normal - Neck Neck: supple, normal ROM - Respiratory Respiratory effort: normal Respiratory: bilateral: CTA - Breasts Breasts: normal - Cardiovascular Heart rate: 78 Rhythm: regular Heart Sounds: Present: S1 & S2. Absent: gallop, rub Extremities: pulses intact, No edema, normal color, Full ROM - Gastrointestinal General gastrointestinal: Present: soft, non-tender, non-distended, normal bowel sounds - Genitourinary Male genitourinary: normal - Integumentary Integumentary: clear, warm, dry - Musculoskeletal Musculoskeletal: 1, strength equal bilaterally - Neurologic Neurologic: moves all extremities - Psychiatric Psychiatric: memory intact, appropriate mood/affect, intact judgment & insight - Allied health notes Allied health notes reviewed: nursing, case management - Labs CBC & Chem 7: 07/16/21 13:37 07/20/21 04:26 Labs: Abnormal lab results 07/20/21 Range/Units 21:43 POC Glucose 154 H (70-105) mg/dL HEART Score - HEART Score Troponin: Troponin T 0.038 ng/mL (0.00-0.029) H 07/16/21 13:37
--- NOTE | 2021-07-21 08:51 | Progress Note ---
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 Compensated\\ COPD 07/21/2021. Continue IV dexamethasone and remdesivir. Continue anticoagulation. Complete 5 days of empiric antibiotics. Continue to trend inflammatory markers History Interval history: No new issues overnight. Hospitalist Physical - Constitutional Vitals: Temp Pulse Resp BP Pulse Ox 98.0 F 89 30 H 159/91 88 07/21/21 05:13 07/21/21 05:13 07/21/21 05:13 07/21/21 05:13 07/21/21 05:13 General appearance: Present: no acute distress, well-nourished - EENT Eyes: Present: PERRL, EOM intact ENT: hearing intact, clear oral mucosa, dentition normal - Neck Neck: Present: supple, normal ROM - Respiratory Respiratory effort: normal Respiratory: bilateral: CTA - Cardiovascular Rhythm: regular Heart Sounds: Present: S1 & S2. Absent: gallop, rub - Extremities Extremities: no ischemia, No edema, Full ROM - Abdominal General gastrointestinal: soft, non-tender, non-distended, normal bowel sounds - Integumentary Integumentary: Present: clear, warm, dry - Neurologic Neurologic: CNII-XII intact, moves all extremities HEART Score - HEART Score Troponin: Troponin T 0.038 ng/mL (0.00-0.029) H 07/16/21 13:37 Results - Labs CBC & Chem 7: 07/16/21 13:37 07/20/21 04:26 Labs: Laboratory Last Values WBC 8.9 K/mm3 (4.5-11.0) 07/16/21 13:37 RBC 3.86 M/mm3 (3.65-5.03) 07/16/21 13:37 Hgb 12.0 gm/dl (11.8-15.2) 07/16/21 13:37 Hct 37.5 % (35.5-45.6) 07/16/21 13:37 MCV 97 fl (84-94) H 07/16/21 13:37 MCH 31 pg (28-32) 07/16/21 13:37 MCHC 32 % (32-34) 07/16/21 13:37 RDW 14.9 % (13.2-15.2) 07/16/21 13:37 Plt Count 147 K/mm3 (140-440) 07/16/21 13:37 Add Manual Diff Complete 07/16/21 13:37 Total Counted 100 07/16/21 13:37 Seg Neutrophils % Prepared Foods Team Leader 07/16/21 13:37 Seg Neuts % (Manual) 93.0 % (40.0-70.0) H 07/16/21 13:37 Band Neutrophils % 0 % 07/16/21 13:37 Lymphocytes % (Manual) 5.0 % (13.4-35.0) L 07/16/21 13:37 Reactive Lymphs % (Man) 0 % 07/16/21 13:37 Monocytes % (Manual) 2.0 % (0.0-7.3) 07/16/21 13:37 Eosinophils % (Manual) 0 % (0.0-4.3) 07/16/21 13:37 Basophils % (Manual) 0 % (0.0-1.8) 07/16/21 13:37 Metamyelocytes % 0 % 07/16/21 13:37 Myelocytes % 0 % 07/16/21 13:37 Promyelocytes % 0 % 07/16/21 13:37 Blast Cells % 0 % 07/16/21 13:37 Nucleated RBC % Not Reportable 07/16/21 13:37 Seg Neutrophils # Man 8.3 K/mm3 (1.8-7.7) H 07/16/21 13:37 Band Neutrophils # 0.0 K/mm3 07/16/21 13:37 Lymphocytes # (Manual) 0.4 K/mm3 (1.2-5.4) L 07/16/21 13:37 Abs React Lymphs (Man) 0.0 K/mm3 07/16/21 13:37 Monocytes # (Manual) 0.2 K/mm3 (0.0-0.8) 07/16/21 13:37 Eosinophils # (Manual) 0.0 K/mm3 (0.0-0.4) 07/16/21 13:37 Basophils # (Manual) 0.0 K/mm3 (0.0-0.1) 07/16/21 13:37 Metamyelocytes # 0.0 K/mm3 07/16/21 13:37 Myelocytes # 0.0 K/mm3 07/16/21 13:37 Promyelocytes # 0.0 K/mm3 07/16/21 13:37 Blast Cells # 0.0 K/mm3 07/16/21 13:37 WBC Morphology Not Reportable 07/16/21 13:37 Hypersegmented Neuts Not Reportable 07/16/21 13:37 Hyposegmented Neuts Not Reportable 07/16/21 13:37 Hypogranular Neuts Not Reportable 07/16/21 13:37 Smudge Cells Not Reportable 07/16/21 13:37 Toxic Granulation Not Reportable 07/16/21 13:37 Toxic Vacuolation Not Reportable 07/16/21 13:37 Dohle Bodies Not Reportable 07/16/21 13:37 Pelger-Huet Anomaly Not Reportable 07/16/21 13:37 Eleni Rods Not Reportable 07/16/21 13:37 Platelet Estimate Consistent w auto 07/16/21 13:37 Clumped Platelets Not Reportable 07/16/21 13:37 Plt Clumps, EDTA Not Reportable 07/16/21 13:37 Large Platelets Not Reportable 07/16/21 13:37 Giant Platelets Not Reportable 07/16/21 13:37 Platelet Satelliting Not Reportable 07/16/21 13:37 Plt Morphology Comment Not Reportable 07/16/21 13:37 RBC Morphology Normal 07/16/21 13:37 Dimorphic RBCs Not Reportable 07/16/21 13:37 Polychromasia Not Reportable 07/16/21 13:37 Hypochromasia Not Reportable 07/16/21 13:37 Poikilocytosis Not Reportable 07/16/21 13:37 Anisocytosis Not Reportable 07/16/21 13:37 Microcytosis Not Reportable 07/16/21 13:37 Macrocytosis Not Reportable 07/16/21 13:37 Spherocytes Not Reportable 07/16/21 13:37 Pappenheimer Bodies Not Reportable 07/16/21 13:37 Sickle Cells Not Reportable 07/16/21 13:37 Target Cells Not Reportable 07/16/21 13:37 Tear Drop Cells Not Reportable 07/16/21 13:37 Ovalocytes Not Reportable 07/16/21 13:37 Helmet Cells Not Reportable 07/16/21 13:37 [place] Bodies Not Reportable 07/16/21 13:37 [place] Rings Not Reportable 07/16/21 13:37 [place] Cells Not Reportable 07/16/21 13:37 Bite Cells Not Reportable 07/16/21 13:37 Crenated Cell Not Reportable 07/16/21 13:37 Elliptocytes Not Reportable 07/16/21 13:37 Acanthocytes (Spur) Not Reportable 07/16/21 13:37 Rouleaux Not Reportable 07/16/21 13:37 Hemoglobin C Crystals Not Reportable 07/16/21 13:37 Schistocytes Not Reportable 07/16/21 13:37 Malaria parasites Not Reportable 07/16/21 13:37 Deepak Bodies Not Reportable 07/16/21 13:37 Hem Pathologist Commnt No 07/16/21 13:37 D-Dimer 6795.60 ng/mlDDU (0-234) H 07/16/21 13:37 Sodium 155 mmol/L (137-145) H 07/20/21 04:26 Potassium 5.0 mmol/L (3.6-5.0) 07/20/21 04:26 Chloride 118.2 mmol/L (98-107) H 07/20/21 04:26 Carbon Dioxide 25 mmol/L (22-30) 07/20/21 04:26 Anion Gap 17 mmol/L 07/20/21 04:26 BUN 66 mg/dL (9-20) H 07/20/21 04:26 Creatinine 1.3 mg/dL (0.8-1.3) 07/20/21 04:26 Estimated GFR 52 ml/min 07/20/21 04:26 BUN/Creatinine Ratio 51 % 07/20/21 04:26 Glucose 197 mg/dL (75-100) H 07/20/21 04:26 POC Glucose 154 mg/dL (70-105) H 07/20/21 21:43 Calcium 9.1 mg/dL (8.4-10.2) 07/20/21 04:26 Ferritin 512.3 ng/mL (30.0-300.0) H 07/16/21 13:37 Total Bilirubin 0.40 mg/dL (0.1-1.2) 07/20/21 04:26 AST 12 units/L (5-40) 07/20/21 04:26 ALT 7 units/L (7-56) 07/20/21 04:26 Alkaline Phosphatase 79 units/L (35-129) 07/20/21 04:26 Lactate Dehydrogenase 310 units/L (91-180) H 07/16/21 13:37 Troponin T 0.038 ng/mL (0.00-0.029) H 07/16/21 13:37 C-Reactive Protein 23.20 mg/dL (0.00-1.30) H 07/16/21 13:37 Total Protein 7.1 g/dL (6.3-8.2) 07/20/21 04:26 Albumin 2.8 g/dL (3.9-5) L 07/20/21 04:26 Albumin/Globulin Ratio 0.7 % 07/20/21 04:26 Triglycerides 80 mg/dL (2-149) 07/16/21 13:37 Cholesterol 90 mg/dL (50-199) 07/16/21 13:37 LDL Cholesterol Direct 49 mg/dL (50-130) L 07/16/21 13:37 HDL Cholesterol 29 mg/dL (40-59) L 07/16/21 13:37 Cholesterol/HDL Ratio 3.10 % 07/16/21 13:37 Procalcitonin 0.84 ng/mL (<0.15) 07/19/21 10:31 Coronavirus (PCR) Positive (Negative) A 07/17/21 Unknown Hunter/IV: Voiding Method Diaper Active Medications - Current Medications Current Medications: Generic Name Dose Route Start Last Admin Trade Name Youq PRN Reason Stop Dose Admin Acetaminophen 650 mg 07/16/21 21:08 07/16/21 23:03 Acetaminophen 325 Mg Tab PO 650 mg Q4H PRN Administration Pain MILD(1-3)/Fever >100.5/BLANTON Dexamethasone 8 mg 07/16/21 22:00 07/20/21 22:45 Dexamethasone 4 Mg/Ml Vial IV 07/25/21 22:01 8 mg Q24H VICKY Administration Heparin Sodium (Porcine) 5,000 unit 07/16/21 22:00 07/20/21 21:21 Heparin 5,000 Unit/1 Ml Vial SUB-Q 5,000 unit Q12HR VICKY Administration Hydromorphone HCl 0.5 mg 07/16/21 21:10 Hydromorphone 1 Mg/1 Ml Inj IV Q3H PRN Pain , Severe (7-10) REMDESIVIR 100 mg/ Sodium 250 mls @ 500 mls/hr 07/20/21 21:00 07/20/21 22:53 Chloride IV 07/23/21 21:29 500 mls/hr Q24HR@2100 VICKY Administration Dextrose 1,000 mls @ 100 mls/hr 07/20/21 19:00 07/20/21 21:22 D5w IV 100 mls/hr DIRECT VICKY Administration Metoclopramide HCl 10 mg 07/16/21 21:10 Metoclopramide 10 Mg/2 Ml Inj IV Q6H PRN Nausea And Vomiting Ondansetron HCl 4 mg 07/16/21 21:08 Ondansetron 4 Mg/2 Ml Inj IV Q8H PRN Nausea And Vomiting Oxycodone/Acetaminophen 1 tab 07/16/21 21:10 Oxycodone /Acetaminophen 5-325mg Tab PO Q6H PRN Pain, Moderate (4-6) Sodium Chloride 10 ml 07/16/21 22:00 07/20/21 21:23 Sodium Chloride 0.9% 10 Ml Flush Syringe IV 10 ml BID VICKY Administration Sodium Chloride 10 ml 07/16/21 21:08 Sodium Chloride 0.9% 10 Ml Flush Syringe IV PRN PRN LINE FLUSH Sodium Chloride 50 ml 07/19/21 14:30 07/21/21 03:47 Sodium Chloride 0.9% 50 Ml Ivpb IV 07/23/21 21:01 Not Given Q24HR@2100 [facility] Tiotropium Sullivan 1 puff 07/20/21 09:00 07/20/21 09:05 Tiotropium 18 Mcg Cap Inhalation IH Not Given Q24HRT [facility] Nutrition/Malnutrition Assess - Dietary Evaluation Nutrition/Malnutrition Findings: Nutrition Notes Start: 07/19/21 11:21 Freq: Status: Active Protocol: Document 07/19/21 11:21 CROW (Rec: 07/19/21 11:29 CROW [id number]) Nutrition Notes Need for Assessment generated from: urinalysis technician Initial or Follow up Assessment Current Diagnosis Acute Kidney Injury,COPD,Heart Failure,Respiratory Failure Other Pertinent Diagnosis COVID-19 pneu, SIRS, sacral wound Current Diet Cardiac with chopped meats + Ensure High Protein BID Labs/Tests BG labs: 194, 197, 232, 164 Pertinent Medications Decadron, NS at 75ml/hr Height 5 ft 6 in Weight 81.647 kg Murray Body Weight (kg) 64.54 BMI 29.0 Weight Status Overweight Subjective/Other Information Pt screened for skin risk ( Ted score: 17). He is confused and requires wrist restraints sec to continued removal of oxygen and telemetry leads. He consumed 25% of breakfast this am. Burn Absent Trauma Absent Current % PO Poor (25-49%) Minimum of two criteria No #1 Nutrition Diagnosis Inadequate protein-energy intake Etiology confusion, COVID-19 (+) As Evidenced by Signs and Symptoms pt consumed 25% of breakfast this am Is patient on ventilator? No Is Patient Ambulatory and/or Out of Bed No REE-([facility]-confined to bed) 1007.007 Calculation Used for Recommendations [facility] Additional Notes Pro needs 1-1.2g/kg adjBW: 73- 88g/day Fluid needs 1ml/kcal Nutrition Intervention Change Diet Order: Add Consistent CHO modifier to current diet order Add Supplement/Snack (indicate name/kcal Continue Ensure High Protein /protein ) BID Provides kCal: 320 Provides Protein (gm) 32 Goal #1 PO intake of meals plus ONS to meet at least 75% energy and pro needs Goal #2 Wound healing Anticipated Discharge Needs: Continue current diet order + ONS 1-2 times daily if PO intakes suboptimal Follow-Up By: 07/23/21 Additional Comments F/U: intakes (meals/ONS)
[2021-07-21] MEDS: HEPARIN 5,000 UNIT/1 ML VIAL SUB-Q SCH ×2 (11:32→21:29)
--- NOTE | 2021-07-21 14:08 | Progress Note ---
Assessment and Plan Cultures: SARS CoV2 PCR: Positive A/P: 86-year-old male with CHF, COPD, history of AAA was admitted from [facility] with hypoxia: #Bilateral pneumonia: Secondary to COVID-19. Elevated procalcitonin and inf lammatory markers. #Acute hypoxic respiratory failure: Requiring nasal cannula. #ETHEL: Creatinine improving #COPD Recs: -Continue IV/PO Dexamethasone x 10 days -continue IV remdesivir x 5 days -prophylactic anticoagulation based on d-dimer per hospital protocol -completed 5 days of empiric antibiotics -trend ferritin, d-dimer, CRP every 2-3 days Shannon Valdez MD, FACP, [facility] O: [phone] F: [phone] Subjective Date of service: 07/21/21 Principal diagnosis: COVID pneumonia Interval history: No fever. Remains on oxygen by ME. Objective - Exam Narrative Exam: Physical Exam (reviewed in chart to minimize risk of transmission) Constitutional: deferred Head, Ears, Nose: deferred Eyes: deferred Neck: deferred Oral: deferred Cardiovascular: deferred Respiratory: deferred GI: deferred Musculoskeletal: deferred Skin: deferred Hem/Lymphatic: deferred Psych: deferred Neurological: deferred - Constitutional Vitals: Vital Signs Temp Pulse Resp BP Pulse Ox 97.6 F 89 18 148/90 88 07/21/21 12:51 07/21/21 05:13 07/21/21 12:51 07/21/21 12:51 07/21/21 05:13 Temperature -Last 24 Hours Temperature 97.6 F Temperature 98.0 F Temperature 97.9 F Temperature 98.2 F Temperature 97.6 F - Labs CBC & Chem 7: 07/16/21 13:37 07/20/21 04:26 Labs: Abnormal lab results 07/20/21 Range/Units 21:43 POC Glucose 154 H (70-105) mg/dL
[2021-07-21 17:32] LABS: Albumin 2.8 g/dL (3.9-5); Calcium 8.5 mg/dL (8.4-10.2)
[2021-07-21] MEDS: REMDESIVIR 100 MG in SODIUM CHLORIDE 0.9% 250ML 250 ML IV SCH (21:31)
[2021-07-21] MEDS: dexAMETHasone 4 MG/ML VIAL IV SCH (21:39)
[2021-07-22] MEDS: SODIUM CHLORIDE 0.9% 50 ML IVPB IV SCH ×2 (04:40→23:37)
[2021-07-22 05:31] LABS: Albumin 2.9 g/dL (3.9-5)
--- NOTE | 2021-07-22 08:15 | Discharge Summary ---
Providers - Providers Date of Admission: 07/16/21 13:00 Date of discharge: 07/22/21 Attending physician: FITO IGLESIAS 07/17/21 15:10 Physical Therapy Evaluation and Treat [CONS] Routine Comment: Reason For Exam: generalized weakness 07/17/21 15:11 Occupational Therapy Evaluate and Treat [CONS] Routine Comment: Reason For Exam: weakness Speech Therapy Evaluation and Treat [CONS] Routine Reason For Exam: swallowing 07/19/21 09:33 Consult to Physician [CONS] Routine Comment: Consulting Provider: MITCHELL WISE Physician Instructions: Reason For Exam: COVID pneumonia 50% Ventimask Primary care physician: WAREHOUSE COORDINATOR Hospitalization Reason for admission: SOB Condition: Stable Hospital course: 86-year-old male with significant past medical history of CHF, COPD and history of AAA was admitted from [facility] with diagnosis of acute hypoxic respiratory failure secondary to bilateral pneumonia/COVID-pneumonia, sepsis (present on admission) and acute kidney injury. Patient was found to have COVID PCR that was positive on 07/17. Patient was noted to have elevated procalcitonin and inflammatory markers. Patient was treated with supplemental oxygen. The patient received IV dexamethasone and remdesivir. Patient also received prophylactic anticoagulation. The patient completed 5 days of empiric antibiotics. Case management had a discussion with the daughter, Jayda Blackburn who reported that she was unable to care for her father at home. After much discussion, daughter opted to have hospice. Case management arranged for [facility]. I had a discussion with the daughter who reports that she only wants comfort care and will proceed with hospice. The daughter would not like to complete dexamethasone or remdesivir. Dedicated discharge time 32 minutes Disposition: 30 STILL A PATIENT Final Discharge Diagnosis (Prints w/discharge instructions): acute hypoxic respiratory failure secondary to bilateral pneumonia/COVID-pneumonia, sepsis (present on admission) and acute kidney injury Core Measure Documentation - Palliative Care Palliative Care/ Comfort Measures: Hospice Care - Core Measures Any of the following diagnoses?: none Exam - Constitutional Vitals: Temp Pulse Resp BP Pulse Ox 97.7 F 93 H 20 145/70 99 07/22/21 05:00 07/22/21 05:00 07/22/21 05:00 07/22/21 05:00 07/22/21 05:00 General appearance: Present: no acute distress, well-nourished - EENT Eyes: Present: PERRL ENT: hearing intact, clear oral mucosa - Neck Neck: Present: supple, normal ROM - Respiratory Respiratory effort: normal Respiratory: bilateral: CTA - Cardiovascular Heart Sounds: Present: S1 & S2. Absent: rub, click - Extremities Extremities: pulses symmetrical, No edema Peripheral Pulses: within normal limits - Abdominal General gastrointestinal: Present: soft, non-tender, non-distended, normal bowel sounds Male genitourinary: Present: normal - Integumentary Integumentary: Present: clear, warm, dry - Musculoskeletal Musculoskeletal: gait normal, strength equal bilaterally - Psychiatric Psychiatric: appropriate mood/affect, intact judgment & insight - Neurologic Neurologic: CNII-XII intact, moves all extremities Plan Activity: advance as tolerated Weight Bearing Status: Weight Bear as Tolerated Diet: regular Follow up with: PRIMARY CARE, [Primary Care Provider] - 3-5 Days
[2021-07-22] MEDS: DEXTROSE 5% IN WATER 1,000 ML IV SCH ×2 (08:34→16:37)
[2021-07-22] MEDS: HEPARIN 5,000 UNIT/1 ML VIAL SUB-Q SCH (09:13)
[2021-07-22] MEDS: TIOTROPIUM 18 MCG CAP INHALATION IH SCH ×2 (10:03→10:04)
--- NOTE | 2021-07-22 14:51 | Progress Note ---
Assessment and Plan Cultures: SARS CoV2 PCR: Positive A/P: 86-year-old male with CHF, COPD, history of AAA was admitted from [facility] with hypoxia: #Bilateral pneumonia: Secondary to COVID-19. Elevated procalcitonin and inf lammatory markers. #Acute hypoxic respiratory failure: Requiring nasal cannula. #ETHEL: Creatinine improving #COPD Recs: -noted plans for discharge on hospice. Will sign off. Shannon Valdez MD, FACP, [facility] O: [phone] F: [phone] Subjective Date of service: 07/22/21 Principal diagnosis: COVID pneumonia Interval history: No fever. Noted plans for hospice. Objective - Exam Narrative Exam: Physical Exam (reviewed in chart to minimize risk of transmission) Constitutional: deferred Head, Ears, Nose: deferred Eyes: deferred Neck: deferred Oral: deferred Cardiovascular: deferred Respiratory: deferred GI: deferred Musculoskeletal: deferred Skin: deferred Hem/Lymphatic: deferred Psych: deferred Neurological: deferred - Constitutional Vitals: Vital Signs Temp Pulse Resp BP Pulse Ox 97.7 F 93 H 20 145/70 99 07/22/21 05:00 07/22/21 05:00 07/22/21 05:00 07/22/21 05:00 07/22/21 10:29 Temperature -Last 24 Hours Temperature 97.7 F Temperature 97.8 F Temperature 97.5 F - Labs CBC & Chem 7: 07/16/21 13:37 07/22/21 05:00 Labs: Abnormal lab results 07/21/21 07/21/21 07/22/21 Range/Units 16:54 22:26 05:00 D-Dimer (0-234) ng/mlDDU Sodium 158 H 156 H (137-145) mmol/L Chloride 123.3 H 120.8 H (98-107) mmol/L BUN 60 H 60 H (9-20) mg/dL Glucose 243 H 243 H (75-100) mg/dL POC Glucose 179 H (70-105) mg/dL Ferritin (30.0-300.0) ng/mL C-Reactive Protein (0.00-1.30) mg/dL Albumin 2.8 L 2.9 L (3.9-5) g/dL 07/22/21 07/22/21 07/22/21 Range/Units 05:00 05:00 05:00 D-Dimer 4306.97 H (0-234) ng/mlDDU Sodium (137-145) mmol/L Chloride (98-107) mmol/L BUN (9-20) mg/dL Glucose (75-100) mg/dL POC Glucose (70-105) mg/dL Ferritin 469.2 H (30.0-300.0) ng/mL C-Reactive Protein 3.80 H (0.00-1.30) mg/dL Albumin (3.9-5) g/dL
[2021-07-22 19:27] VITALS: BP 138/70
[2021-07-22] MEDS: REMDESIVIR 100 MG in SODIUM CHLORIDE 0.9% 250ML 250 ML IV SCH (23:37)
== END 2021-07-22 21:58 | disposition hospice, home (50) | DRG 871 ==
LOC: ED 11:39 → 3A 13:00
PROVIDERS: ADMIT Internal Medicine; ATTEND Hospitalist
PROC: XW033E5 Introduction of Remdesivir Anti-infective into Peripheral Vein, Percutaneous Approach, New Technology Group 5 (ICD-10-PCS; principal; 2021-07-19)
DX: A41.89 Other specified sepsis (principal); U07.1 COVID-19; J96.01 Acute respiratory failure with hypoxia; J12.82 Pneumonia due to coronavirus disease 2019; N17.9 Acute kidney failure, unspecified; J44.0 Chronic obstructive pulmonary disease with (acute) lower respiratory infection; I50.42 Chronic combined systolic (congestive) and diastolic (congestive) heart failure; E87.0 Hyperosmolality and hypernatremia; R65.10 Systemic inflammatory response syndrome (SIRS) of non-infectious origin without acute organ dysfunction; I50.9 Heart failure, unspecified; Z85.51 Personal history of malignant neoplasm of bladder; I71.4 Abdominal aortic aneurysm, without rupture
CPT/HCPCS: 36415; 71045; 80048; 80053; 80061; 82728; 82947; 82962; 83615; 84145; 84484; 85007; 85025; 85379; 86140; 93005; 93306; 94760; G0378; Q0162; J0456; J0696; J1100; J1644; J7030; J7050; J7070; U0003